=== PATIENT | male | born 1970 | race Caucasian/White ===

== ENCOUNTER → 2021-11-12 10:19 | Outpatient (CLI) | payer OTHER, SELFPAY ==
--- NOTE | ~2021-11-12 | CT_ITS ---
EXAMINATION: CT chest abdomen pelvis w con DATE: 11/12/2021 10:55 INDICATION: Lung nodule. Right lower quadrant abdominal mass. TECHNIQUE: Computed tomography (CT) of the chest, abdomen, and pelvis was performed with 100 mL Omnip aque 350 intravenous contrast. Automated exposure control and iterative reconstruction technique were employed. The dose-length product was 1513.12 mGy-cm. COMPARISON: None FINDINGS: CHEST CT: The lungs demonstrate mild atelectasis. There is a 3.4 x 1.8 cm mass in perihilar apicoposterior segm ent left upper lobe with peripheral atelectasis. There is a 5 x 9 mm broncholith in apicoposterior se gment left upper lobe. There is a 10 x 10 mm left hilar lymph node. There is a small left pleural eff usion. The heart size is normal. No pericardial effusion. There is mild thoracic spondylosis. ABDOMEN/PELVIS CT: The liver, gallbladder, spleen, pancreas, adrenal glands, and right kidney are normal. There is an 8 mm cyst in left kidney. There are no dilated loops of bowel. There are bilateral inguinal hernias con taining fat. The appendix is normal. There are no pathologically enlarged lymph nodes. There is no fr ee intraperitoneal fluid. There is mild lumbar spondylosis. IMPRESSION: 1. 5 x 9 mm broncholith in apicoposterior segment left upper lobe. A 3.4 x 1.8 cm mass in perihilar a picoposterior segment left upper lobe is most likely postobstructive pneumonia. Bronchoscopy is recom mended. 2. Mildly enlarged left hilar lymph node. 3. Bilateral inguinal hernias containing fat. Reviewed, dictated and finalized at location [facility]. [employer] IMPRESSION: 1. 5 x 9 mm broncholith in apicoposterior segment left upper lobe. A 3.4 x 1.8 cm mass in perihilar apicoposterior segment left upper lobe is most likely post obstructive pneumonia. Bronchoscopy is recommended. 2. Mildly enlarged left hilar lymph node. 3. Bilateral inguinal hernias containing fat.
[2021-11-12 10:41] LABS: Estimated Glomerular Filt Rate > 60
== END ==
PROVIDERS: Visit Provider Family Medicine
DX: R93.89 Abnormal findings on diagnostic imaging of other specified body structures (principal); K40.20 Bilateral inguinal hernia, without obstruction or gangrene, not specified as recurrent
CPT/HCPCS: 71260; 74177; Q9967

== ENCOUNTER 2022-02-07 07:50 | Outpatient (CLI) | payer OTHER, SELFPAY ==
--- NOTE | ~2022-02-07 | PE_ITS ---
EXAMINATION: PET skull to mid thigh DATE: 02/07/2022 10:01 INDICATION: Left lung mass. TECHNIQUE: Blood glucose level was 121 mg/dL. 7.491 mCi of 18-fluorodeoxyglucose (18-FDG) was adminis tered i.v. Low dose computed tomography (CT) images were acquired from the base of the brain to the p roximal thighs for attenuation correction and anatomic localization. Automated exposure control was e mployed. Dose-length product (DLP) was 1282 mGy-cm. Positron emission tomography (PET) images were ac quired in the same distribution. COMPARISON: CT 11/12/2021 FINDINGS: Head/neck: There is increased activity in the nose, oral cavity, oropharynx, and glottis without abno rmal CT correlate, likely physiologic. There are no pathologically enlarged lymph nodes. There is mod erate cervical spondylosis. Chest: There is a broncholith in apicoposterior segment left upper lobe. There are airspace opacities in apicoposterior segment left upper lobe with volume loss and maximum SUV of 3.4. No pleural effusi on. The heart size is normal. No pericardial effusion. There are no pathologically enlarged lymph nod es. There is mild thoracic spondylosis. There is bone marrow edema in multiple vertebral bodies with out abnormal CT correlate, likely bone marrow stimulation. Abdomen/pelvis/proximal thighs: There is diffuse hepatic steatosis. The gallbladder, spleen, pancreas , adrenal glands, and kidneys are normal. Left kidney are normal. There is an 18 mm cyst in right kid dustin. There is prominent fat in the inguinal canals that may be hernias. There are no dilated loops of bowel. The appendix is normal. There are no pathologically enlarged lymph nodes. There is no free in traperitoneal fluid. There is mild lumbar spondylosis. There is bone marrow edema in multiple vertebr al bodies without abnormal CT correlate, likely bone marrow stimulation. IMPRESSION: 1. Mildly improved airspace opacities in apicoposterior segment left upper lobe with increased activi ty peripheral to a broncholith, most likely postobstructive atelectasis and pneumonia. Reviewed, dictated and finalized at location A. IMPRESSION: 1. Mildly improved airspace opacities in apicoposterior segment left upper lobe with increased activity peripheral to a broncholith, most likely postobstructi ve atelectasis and pneumonia.
[2022-02-07 08:26] LABS: Glucose Point of Care 121 mg/dl (65-105)
== END 2022-02-07 07:51 | disposition home or self-care (01) ==
DX: R91.8 Other nonspecific abnormal finding of lung field (principal)
CPT/HCPCS: 78815; A9552

== ENCOUNTER 2022-05-13 14:45 | Outpatient (CLI) | payer OTHER, SELFPAY ==
--- NOTE | ~2022-05-13 | CT_ITS ---
EXAMINATION: CT diagnostic chest wo con DATE: 05/13/2022 15:18 INDICATION: Dyspnea on exertion. Broncholithiasis. TECHNIQUE: Computed tomography (CT) of the chest was performed without intravenous contrast. Automate d exposure control and iterative reconstruction technique were employed. Exam dose: 744.44 mGy-cm to juan exam DLP. COMPARISON: 02/07/2022 PET/CT scan CT chest abdomen pelvis FINDINGS: Normal heart size. Mild coronary artery calcification. No pericardial or pleural effusion. No thoracic aortic aneurysm. No hilar or mediastinal mass lesion or lymphadenopathy. Interval resolution of left upper lobe broncholith with diminished anteromedial left upper lobe/apica l atelectasis. There is stable likely chronic left apical scarring. No pulmonary infiltrate or consolidation is noted otherwise. Very small probable fissural nodes along the right and to a lesser extent left greater fissure. Included portions of the adrenal glands are unremarkable. Hepatic steatosis. No suspicious osteolytic or osteoblastic lesions. Mild degenerative spurring of the thoracic spine. IMPRESSION: Resolution of left upper lobe broncholith and diminished anteromedial left upper lobe/ap ical atelectasis since 11/12/2021 Chronic left apical scarring Reviewed, dictated and finalized at [facility]. Reviewed, dictated and finalized at location [facility]. IMPRESSION: Resolution of left upper lobe broncholith and diminished anteromed ial left upper lobe/apical atelectasis since 11/12/2021 Chronic left apical scarring
== END 2022-05-13 14:46 | disposition home or self-care (01) ==
DX: R93.89 Abnormal findings on diagnostic imaging of other specified body structures (principal); J98.09 Other diseases of bronchus, not elsewhere classified; R06.09 Other forms of dyspnea
CPT/HCPCS: 71250